=== PATIENT | female | born 1945 | race Caucasian/White ===

== ENCOUNTER → 2023-06-07 11:49 | Outpatient (REF) | payer MEDICARE, SELFPAY | LOC: RAD 11:49 | PROVIDERS: ATTENDING PHYSICIAN Family Medicine | DX: M54.41 Lumbago with sciatica, right side (principal); M54.42 Lumbago with sciatica, left side | CPT/HCPCS: 72110 ==

== ENCOUNTER → 2024-03-19 10:44 | Outpatient (REF) | payer MEDICARE, SELFPAY | LOC: RAD 10:44 | PROVIDERS: ATTENDING PHYSICIAN Family Medicine; FAMILY PHYSICIAN Family Medicine | DX: M06.9 Rheumatoid arthritis, unspecified (principal); E78.2 Mixed hyperlipidemia; I25.10 Atherosclerotic heart disease of native coronary artery without angina pectoris; M81.0 Age-related osteoporosis without current pathological fracture; M54.2 Cervicalgia; M25.512 Pain in left shoulder | CPT/HCPCS: 72052; 73030 ==

== ENCOUNTER 2024-04-01 10:11 | Emergency (ER) | payer MEDICARE, SELFPAY ==
[2024-04-01 10:21] VITALS: BP 168/99
--- NOTE | 2024-04-01 10:39 | ED.GENMED ---
History of Present Illness
General
Chief Complaint: Musculo-Skeletal Complaint
Time Seen by Provider: 04/01/24 10:38
History of Present Illness
History of Present Illness:
TIME OF INITIAL ENCOUNTER: 10:45 AM
HPI: The patient has been having ongoing left shoulder pain�this was nontraumatic. She could not get into see an orthopedist until another 12 days. She has no chest pain. The pain worsens with movement of the left shoulder. There has been no
fevers. She was concerned because of increased swelling as well. She has been taking meloxicam without much improvement
EXAM:
GENERAL: Well appearing in no distress
HEENT: Moist oral mucosa
NEUROLOGIC: Good strength all extremities, no obvious coordination deficits
PSYCHIATRIC: Appropriate mental status, normal insight and judgement
EXTREMITIES: There is mild tenderness to palpation diffusely of the left shoulder, there is only mildly decreased active range of motion into abduction and flexion of the left shoulder, there is no signs of septic joint however mild joint effusion
is noted
SKIN: No rash, no lesions
NUMBER AND COMPLEXITY OF PROBLEMS ADDRESSED AT THE ENCOUNTER
� Chronic conditions affecting care: CAD
� Acute Exacerbation and/or Progression of Chronic Illness:
� Differential Diagnosis includes: Rotator cuff pathology, osteoarthritis, shoulder strain, AC joint pathology, bursitis, doubt septic arthritis
AMOUNT AND/OR COMPLEXITY OF DATA TO BE REVIEWED AND ANALYZED
� I performed an independent evaluation of and my interpretation is:
EKG: Sinus 70, leftward axis deviation, diffuse T wave flattening
CT:
X-rays:
Laboratory Studies:
Other:
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
� Clinical information was obtained by an independent historian: I spoke to son at bedside
� Prescriptions/Medications Considered but not given:
� Further testing considered but not performed:
RISK OF COMPLICATIONS AND/OR MORBIDITY OR MORTALITY OF PATIENT MANAGEMENT
� Social determinants of health affecting care: Lives at home
� Discussion with other providers:
� Escalation of care including admission/observation vs risk of discharge considered: Will add sling. She has not been doing terribly well with meloxicam only�will add Ultram. We also talked about adding Tylenol as well. She
does have an appointment to see orthopedics in about 12 days.
ANY OTHER UPDATES:
Past History
Past History
ED Past Medical History: Other (Rheumatioid arthritis)
Social History
Tobacco: Non-smoker
Living: with family
Phy Exam
Physical Exam
Physical Exam:
See HPI
Course
Orders/Labs/Results
Orders:
Orders
04/01/24 10:50
ECG [Electrocardiogram (*1)] Urgent
Reason for Study: Other
Other Reason for Exam: L shoulder pain
EKG- Treatment ONCE
04/01/24 11:16
Sling Left-Treatment ONCE
Tramadol HCl [Ultram] 50 mg PO NOW STA
Vital Signs
Initial and Last Documented VS:
Initial Vital Signs
Temp Pulse Resp BP Pulse Ox
37.2 C 80 18 168/99 98
04/01/24 10:21 04/01/24 10:21 04/01/24 10:21 04/01/24 10:21 04/01/24 10:21
Last Documented Vital Signs
Temp Pulse Resp BP Pulse Ox
37.2 C 80 18 168/99 98
04/01/24 10:21 04/01/24 10:21 04/01/24 10:21 04/01/24 10:21 04/01/24 10:21
*Critical Care Note
Total Time (30-74mins, 75-104mins- exclusive of procedures): Not Applicable
ED Attending Note
-
Portions of this chart may have been created with voice recognition software.� Occasional wrong word or��sound alike� substitutions may have occurred due to the inherent limitations of voice recognition software.
Discharge Plan
Departure
Patient Disposition: Home (Routine Discharge)
Date of Disposition: 04/01/24
Time of Disposition: 12:29
Patient with high blood pressure during this ER visit?: Yes
Discharge Problem:
Acute pain of left shoulder
Instructions: How to Use a Shoulder Sling, BLOOD PRESSURE
Prescriptions:
New
tramadol 50 mg tablet
50 mg PO Q8H PRN (Reason: Pain) Qty: 21 0RF
meloxicam 15 mg tablet
15 mg PO DAILY Qty: 14 0RF
Referrals:
Meaghan Buenrostro DO [Family Provider] -
Activity Restrictions/Additional Instructions:
I recommend using the sling. You can continue using the meloxicam and I also recommend adding Tylenol. I am sending a prescription for Ultram to the [facility] pharmacy at [address] Follow-up with orthopedics. I reviewed the x-ray report that showed
osteoarthritis at the main shoulder joint as well as the AC joint.
Interventions
Interventions:
*Risk Screen - Suicide Last Done: 04/01/24 10:21
*General Assessment Last Done: 04/01/24 10:21
*Neglect/Abuse Screening Last Done: 04/01/24 10:21
*Nursing Disposition Last Done: 04/01/24 13:15
ED-Musculoskeletal Assessment Last Done: 04/01/24 11:08
Discharge Date and Time
Discharge Date/Time: 04/01/24 13:15
Print Language: BRUNEIAN
[2024-04-01] MEDS: ULTRAM 50 MG PO (11:25)
== END 2024-04-01 13:15 | disposition home or self-care (01) ==
LOC: EMR 10:11
PROVIDERS: EMERGENCY PHYSICIAN Emergency Medicine; FAMILY PHYSICIAN Family Medicine
DX: M25.512 Pain in left shoulder (principal); I25.10 Atherosclerotic heart disease of native coronary artery without angina pectoris; M06.9 Rheumatoid arthritis, unspecified
CPT/HCPCS: 99283; 93005

== ENCOUNTER → 2024-06-09 11:06 | Outpatient (REF) | payer MEDICARE, SELFPAY | LOC: RAD 11:06 | PROVIDERS: ATTENDING PHYSICIAN Internal Medicine Rheumatology | DX: M81.0 Age-related osteoporosis without current pathological fracture (principal) | CPT/HCPCS: 77080 ==

== ENCOUNTER → 2024-06-12 18:00 | Outpatient (REF) | payer MEDICARE, SELFPAY | LOC: MRI 3T 18:00 | PROVIDERS: ATTENDING PHYSICIAN Physician Assistant; FAMILY PHYSICIAN Family Medicine | DX: M54.2 Cervicalgia (principal) | CPT/HCPCS: 72141 ==